=== PATIENT | male | born 1950 | race Caucasian/White ===

== ENCOUNTER 2020-08-20 09:06 | Day surgery (SDC) | payer BC, OTHER ==
[2020-08-17 11:38] LABS: ALBUMIN 4.3 g/dL (3.4-5.0); ANION GAP 4 mmol/L (5-15); CALCIUM 9.8 mg/dL (8.5-10.1); CHLORIDE 107 mmol/L (98-107)
[2020-08-17 11:50] LABS: ALANINE AMINOTRANSFERASE 63 U/L (12-78); ALKALINE PHOSPHATASE 126 U/L (45-117); BILIRUBIN,TOTAL 0.7 mg/dL (0.2-1.0); CREATININE 0.89 mg/dL (0.7-1.3); TOTAL PROTEIN 7.6 g/dL (6.4-8.2)
[~2020-08-20] VITALS: Ht 172.7 cm; Wt 96.8 kg
[~2020-08-20 09:06] MED LIST: AMLO-211 PO; ASCO100018 PO; ASPI81TA45 PO; ATOR40TA78 PO; BUPIVACAINE/PF 0.5% ONE; CHOL10003 PO; CYAN100028 PO; EPINEPHRINE 1 MG/ML, 1ML ONE; FISH OIL PO; GLUC15006 PO; HYDROCHLOROTH12.5 MG PO; MULT-658 PO; SELE200T10 PO; TURM500C7 PO; UBID100C10 PO; ZINC PO
[2020-08-20 09:51] VITALS: BP 164/78
[2020-08-20] MEDS ORDERED: CHLORHEXIDINE 15 ML UDC PO ONE (10:00)
[2020-08-20] MEDS ORDERED: LACTATED RINGERS 1,000 ML IV SCH (10:00)
[2020-08-20] MEDS ORDERED: BUPIVACAINE/PF 0.5% ONE (10:49)
[2020-08-20] MEDS ORDERED: EPINEPHRINE 1 MG/ML, 1ML ONE (10:49)
[2020-08-20] MEDS ORDERED: FENTANYL PF 250 MCG/5ML ONE (12:16)
[2020-08-20] MEDS ORDERED: ROCURONIUM 10MG/ML,5ML ONE (13:42)
[2020-08-20] MEDS ORDERED: SUCCINYLCHOLINE 20 MG/ML, 10ML ONE (13:42)
[2020-08-20] MEDS ORDERED: CEFAZOLIN 1,000 MG ONE (13:42)
[2020-08-20] MEDS ORDERED: ONDANSETRON 2MG/ML, 2ML ONE (13:42)
[2020-08-20] MEDS ORDERED: PROPOFOL 10 MG/ML, 20ML ONE (13:42)
[2020-08-20] MEDS ORDERED: NEOSTIGMINE 1 MG/ML, 10ML ONE (13:42)
[2020-08-20] MEDS ORDERED: DEXAMETHASONE 4 MG/ML, 1ML ONE (13:42)
[2020-08-20] MEDS ORDERED: GLYCOPYRROLATE 0.2MG/1ML, 5ML ONE (13:42)
[2020-08-20] MEDS ORDERED: LABETALOL 5MG/ML, 20ML ONE (14:28)
[2020-08-20] MEDS ORDERED: FENTANYL PF 100 MCG/2ML IV PRN (14:30)
[2020-08-20] MEDS ORDERED: MEPERIDINE/PF 25MG/0.5ML IVPush PRN (14:30)
[2020-08-20] MEDS ORDERED: hydrALAzine 20 MG/ML, 1ML ONE (14:30)
[2020-08-20] MEDS ORDERED: hydrALAzine 20 MG/ML, 1ML IV PRN (14:30)
[2020-08-20] MEDS ORDERED: HYDROmorphone 1 MG/ML, 1ML INJ IVPush PRN (14:30)
[2020-08-20] MEDS ORDERED: ACETAMINOPHEN 325 MG TABLET PO PRN (14:30)
[2020-08-20] MEDS ORDERED: OXYcodone 5 MG/5 ML ORAL.SOL UDC PO PRN (14:30)
[2020-08-20] MEDS ORDERED: ALBUTEROL SULFATE 2.5 MG/3 ML NPPB PRN (14:30)
[2020-08-20] MEDS ORDERED: DIAZEPAM 5 MG/ML, 2ML IVPush PRN (14:30)
[2020-08-20] MEDS ORDERED: LABETALOL 5MG/ML, 20ML IV PRN (14:30)
[2020-08-20] MEDS ORDERED: KETOROLAC 30 MG/1 ML IV PRN (15:00)
[2020-08-20] MEDS ORDERED: PROMETHAZINE 25 MG/ML, 1ML IV PRN (15:30)
== END 2020-08-20 16:10 | disposition home or self-care (01) ==
LOC: OUT 09:06 → EDSTATUS 13:00 → OUT 16:10
PROVIDERS: ATTEND Surgery
DX: C43.61 Malignant melanoma of right upper limb, including shoulder (principal); I10 Essential (primary) hypertension; E78.5 Hyperlipidemia, unspecified; Z20.822 Contact with and (suspected) exposure to COVID-19; Z79.82 Long term (current) use of aspirin; Z79.899 Other long term (current) drug therapy; Z85.828 Personal history of other malignant neoplasm of skin
CPT/HCPCS: 14301; 36415; 38525; 78195; 80053; 88305; 88307; 93005; A9541; C1760; J0171; J0330; J0360; J0690; J1100; J2405; J2704; J2710; J3010; J7120; U0003; U0005